=== PATIENT | female | born 1940 | race Caucasian/White ===

== ENCOUNTER 2018-01-25 05:28 | Observation (INO) | payer OTHER ==
[2018-01-25] MEDS ORDERED: GABAPENTIN 300 MG CAP PO ONE (05:50)
[2018-01-25] MEDS ORDERED: ceFAZolin 2 GM/DEXTROSE 100 ML IV ONE (05:50)
[2018-01-25] MEDS ORDERED: ACETAMINOPHEN 500 MG TAB PO ONE (05:50)
[2018-01-25] MEDS ORDERED: LR 1,000 ML IV ONE (05:51)
--- NOTE | 2018-01-25 06:37 | PDHPUP ---
History & Physical Update H&P update statement: This history and physical update is based on an assessment of the patient which was completed after admission or registration (within 24 hours), but prior to the surgery/procedure. H&P update: H&P reviewed & patient examined, no change in patient's condition since H&P completed
[2018-01-25] MEDS ORDERED: DEPO METHYLPREDNISOLONE 40 MG/ML SDV ONE (06:46)
[2018-01-25] MEDS ORDERED: BUPIVACAINE 0.25% 30 ML SDV ONE (06:46)
[2018-01-25] MEDS ORDERED: CHLORHEXIDINE GLUC HIBICLENS 118 ML BTL TP ONE (06:46)
[2018-01-25] MEDS ORDERED: THROMBIN (BOVINE) 5,000 UNIT VIAL TP ONE (06:46)
[2018-01-25] MEDS ORDERED: BACITRACIN 50,000 UNITS/10 ML SYR IRR ONE (06:47)
[2018-01-25] MEDS ORDERED: EPINEPHrine 1 MG/ML INJ ONE (06:47)
[2018-01-25] MEDS ORDERED: PROPOFOL 200 MG/20 ML VIAL ONE (07:11)
[2018-01-25] MEDS ORDERED: fentaNYL 250 MCG/5 ML INJ ONE (07:11)
[2018-01-25] MEDS ORDERED: PROPOFOL/EMULSION 500 MG/50 ML BOTTLE IV ONE ×2 (07:11→08:52)
--- NOTE | 2018-01-25 07:13 | PDANEPAE ---
ANE Past Medical History - Cardiovascular History Hx Hypertension: No Hx Arrhythmias: No Hx Chest Pain: No Hx Coronary Artery / Peripheral Vascular Disease: No Hx CHF / Valvular Disease: No Hx Palpitations: No Cardiovascular History Comment: OCC PAC'S,PVC'S - Pulmonary History Hx COPD: No Hx Asthma/Reactive Airway Disease: No Hx Recent Upper Respiratory Infection: No Hx Oxygen in Use at Home: No Hx Sleep Apnea: No Sleep Apnea Screening Result - Last Documented: Negative - Neurologic History Hx Cerebrovascular Accident: No Hx Seizures: No Hx Dementia: No Neurologic History Comment: ESSENTIAL TREMOR - Endocrine History Hx Diabetes: No Endocrine History Comment: HYPOTHYROID - Renal History Hx Renal Disorders: No - Liver History Hx Hepatic Disorders: No - Neurological & Psychiatric Hx Hx Neurological and Psychiatric Disorders: Yes Neurological / Psychiatric History Comment: SITUATIONAL ANXIETY - Cancer History Hx Cancer: Yes Cancer History Comment: SKIN - Congenital Disorder History Hx Congenital Disorders: No - GI History Hx Gastrointestinal Disorders: No - Other Health History Other Health History: OSTEOARTHRITIS. INTERMITTENT SWELLING IN FINGERS WILL TAKE A DIURETIC MOSTLY IN SUMMER MONTHS - Chronic Pain History Chronic Pain: Yes (LT HIP AND NUMBNESS LT PACE) - Surgical History Prior Surgeries: JORGE A TRIGGER FINGER RELEASES. JORGE A SHLDR SCOPES. HYSTERECTOMY. TONSILLECTOMY. PRAVEEN ANE Review of Systems Review of Systems: - Exercise capacity METS (RN): 4 METS ANE Patient History - Allergies Allergies/Adverse Reactions: No Known Allergies Allergy (Unverified 01/21/18 10:56) - Home Medications Home medications: home medication list seen and reviewed Home Medications: CeleBREX PRN 01/21/18 [Last Taken 01/11/18] Gabapentin PRN 01/21/18 [Last Taken 01/15/18] HCTZ (*) PRN 01/21/18 [Last Taken 01/18/18] Herbals/Supplements -Info Only DAILY 01/21/18 [Last Taken 01/11/18] Levothyroxine DAILY 01/21/18 [Last Taken 01/25/18] Propranolol HCl DAILY 01/21/18 [Last Taken 01/25/18] ZOLPIDEM TARTRATE HS 01/21/18 [Last Taken 01/24/18] Oxycodone-Acetaminophen 10-325 01/25/18 [Last Taken 01/21/18] - NPO status NPO Status: no food or drink >8 hours NPO Since - Liquids (Date): 01/25/18 NPO Since - Liquids (Time): 04:15 NPO Since - Solids (Date): 01/24/18 NPO Since - Solids (Time): 18:00 - Anes Hx Anes Hx: no prior problems - Smoking Hx Smoking Status: Never smoked ANE Labs/Vital Signs - Vital Signs Blood Pressure: 157/85 Heart Rate: 59 Respiratory Rate: 16 O2 Sat (%): 100 Height: 165.1 cm Weight: 61.235 kg ANE Physical Exam - Airway Neck exam: FROM Mallampati Score: Class 2 Mouth exam: normal dental/mouth exam - Pulmonary Pulmonary: no respiratory distress, no rales or rhonchi, clear to auscultation - Cardiovascular Cardiovascular: regular rate and rhythym, no murmur, rub, or gallop - ASA Status ASA Status: II ANE Anesthesia Plan Anesthesia Plan: general endotracheal anesthesia
[2018-01-25] MEDS ORDERED: ZOLPIDEM TARTRATE 5 MG TAB PO PRN (07:24)
[2018-01-25] MEDS ORDERED: oxyCODONE IR 5 MG TAB PO PRN ×2 (07:24→09:00)
[2018-01-25] MEDS ORDERED: IBUPROFEN 200 MG TAB PO PRN (07:24)
[2018-01-25] MEDS ORDERED: HYDROCHLOROTHIAZIDE 25 MG TAB PO PRN (07:24)
[2018-01-25] MEDS ORDERED: POLYETHYLENE GLYCOL 3350 17 GM PKT PO PRN (07:25)
[2018-01-25] MEDS ORDERED: ONDANSETRON DISINTEGRATING 4 MG TAB PO PRN (07:25)
[2018-01-25] MEDS ORDERED: MAGNESIUM HYDROXIDE 30 ML UDCUP PO PRN (07:25)
[2018-01-25] MEDS ORDERED: METHOCARBAMOL 750 MG TAB PO PRN (07:25)
[2018-01-25] MEDS ORDERED: BISACODYL 10 MG SUPP PR PRN (07:25)
[2018-01-25] MEDS ORDERED: ONDANSETRON 4 MG/2 ML VIAL IVP PRN ×2 (07:25→09:00)
[2018-01-25] MEDS ORDERED: LACTULOSE 20 GM/30 ML UDCUP PO PRN (07:25)
[2018-01-25] MEDS ORDERED: HYDROmorphONE/DILAUDID 1 MG/ML INJ IVP PRN (07:25)
[2018-01-25] MEDS ORDERED: diphenhydrAMINE 25 MG CAP PO PRN (07:25)
[2018-01-25] MEDS ORDERED: NS 1,000 ML IV SCH (07:30)
[2018-01-25] MEDS ORDERED: LIDOCAINE 2% 2 ML INJ ONE (07:44)
[2018-01-25] MEDS ORDERED: ROCURONIUM 50 MG/5 ML VIAL ONE (07:44)
[2018-01-25] MEDS ORDERED: DEXAMETHASONE 4 MG/ML VIAL ONE ×2 (07:45)
[2018-01-25] MEDS ORDERED: ACETAMINOPHEN 500 MG TAB PO PRN (09:00)
[2018-01-25] MEDS ORDERED: NALOXONE HCL 0.4 MG/ML INJ IVP PRN (09:00)
[2018-01-25] MEDS ORDERED: SENNOSIDES/DOCUSATE SODIUM TAB PO SCH (09:00)
[2018-01-25] MEDS ORDERED: LR 500 ML IV PRN (09:00)
[2018-01-25] MEDS ORDERED: FAMOTIDINE 20 MG TAB PO SCH (09:00)
[2018-01-25] MEDS ORDERED: PROPRANOLOL HCL 20 MG TAB PO SCH (09:00)
[2018-01-25] MEDS ORDERED: LABETALOL HCL 5 MG/ML 20 ML MDV IVP PRN (09:00)
[2018-01-25] MEDS ORDERED: DIAZEPAM 5 MG/ML 1 ML SYR IVP PRN (09:00)
[2018-01-25] MEDS ORDERED: PROMETHAZINE HCL 25 MG/ML INJ IVP PRN (09:00)
--- NOTE | 2018-01-25 09:50 | POSTANESTH ---
Post Anesthetic Evaluation Cardiovascular Status: Normal, Stable, Similar to Pre-Op Cond Respiratory Status: Normal, Stable, Similar to Pre-op Cond. Level of Consciousness/Mental Status: Can Participate in Eval, Moderately Sleepy Pain Control: Adequate, Prn Tx Ordered Nausea/Vomiting Control: Adequate, Prn Tx Ordered Complications Possibly Related to Anesthesia: None Noted
--- NOTE | 2018-01-25 10:05 | POSTOPPROG ---
Post Op Note Date of Operation: 01/25/18 Surgeon: Mark Davies Customer Support Agent: Miladis Anesthesiologist: Yin Anesthesia: GET(General Endotracheal), Local (Specify) Pre-op Diagnosis: HNP L4/5 Post-op Diagnosis: s/p DEB L4/5 Indication: stenosis, LLE pain Procedure: left L4/5 DEB Findings: none Inf/Abcess present in the surg proc area at time of surgery?: No Depth: Deep Incisional (Fascial) EBL: 50-100 Total fluids administered: see anesthesia record
[2018-01-25] MEDS ORDERED: fentaNYL 100 MCG/2 ML INJ ONE (10:06)
[2018-01-25] MEDS: fentaNYL 100 MCG/2 ML INJ IVP PRN ×2 (10:07→10:16)
--- NOTE | 2018-01-25 10:07 | SOAPPROG ---
SOAP Progress Note Assessment/Plan: Post Op Visit: S: Awake and alert. NAD. Pt with expected lower back pain O: AFVSS/PERRLA/EOMI no droop CN 2-12 grossly intact +lt touch 5/5 BUE/BLE = CDI A/P: 77 yo female that is s/p left sided DEB at L4/5 -orders in place -call with any questions or concerns -pt understands and agrees -pt seen by Dr Davies -admit obs for PT/OT 01/25/18 10:05 Objective: Vital Signs Temp Pulse Resp BP Pulse Ox 36.2 C 59 L 15 137/73 H 97 01/25/18 09:38 01/25/18 07:13 01/25/18 10:01 01/25/18 10:01 01/25/18 10:01 ICD10 Worksheet Patient Problems: Problems Problem Status Onset Lumbar radicular pain Acute Lumbar stenosis Acute - ICD10 Problem Qualifiers (1) Lumbar stenosis (2) Lumbar radicular pain
--- NOTE | 2018-01-25 13:03 | GOP ---
DATE OF OPERATION: 01/25/2018 SURGEON: Diane Davies MD LAST REMODELER REPAIRER: Malcolm Redding PA-C. PREOPERATIVE DIAGNOSIS: 1. Large herniated nucleus pulposus, L4-5, left side. 2. Severe left L4-5 radiculopathy. POSTOPERATIVE DIAGNOSIS: 1. Large herniated nucleus pulposus, L4-5, left side. 2. Severe left L4-5 radiculopathy. PROCEDURE PERFORMED: Left L4-5 hemilaminotomy with medial facetectomy and a left microdiskectomy (63 030, microscope) FINDINGS: ESTIMATED BLOOD LOSS: 50 cc. INDICATIONS: Ms. Caban is an elderly female, who presented with severe left leg pain and MRI demonst rated a large disk extrusion at L4-5 that had migrated rostrally all the way up to the L3-4 disc comp ressing the L4 and the L5 nerve root and I suggested surgery. She was in exquisite pain and she did want to proceed. The risk of CSF leak and recurrent disk herniation was discussed. She understood t hese risks and she did want surgery despite them. She also knew there was a chance surgery would chema l to eliminate her symptoms and she did want to proceed. DESCRIPTION OF PROCEDURE: The patient was taken to the operating room, placed in the supine position . General anesthesia was begun. She was flipped prone onto the Everette frame. Care was taken to pad all points of contact. Her back was sterilely prepped and draped in usual fashion. We made a local izing x-ray and then made a midline incision with a scalpel blade. It was 1.5 cm in length. The sub cutaneous tissue was dissected using Bovie cautery down to the fascia and a subperiosteal dissection was made on the left L4-5 lamina. Self-retaining retractors placed. We drilled a left L4 laminotomy and opened ligamentum flavum and under the microscope, decompressed the left lateral recess. We wer e slightly rostral to L4-5 disk because it was a rostral disk extrusion. We swept the thecal sac med ially and there was a large subannular and subligamentous fragment present. We incised the PLL and t he rostral annulus of the L4-5 disk. We squeezed a large amount of subligamentous material into our field of view and this was removed. We swept rostrally under the thecal sac, but above the posterior longitudinal ligament and delivered several very large free fragment disk herniation fragments from adjacent to the L4 pedicle underneath the L4 nerve and out in the L4 neural foramen. We had just a h uge amount of disk fragments come out in this fashion and this totally relaxed the thecal sac and the exiting L4 nerve. We were able to pass our ball-tip dissected all the way up to the L3-4 disk and w e removed fragments in this location. We then irrigated with antibiotic saline solution. We squeeze d some subannular fragments out from the L4-5 disk itself. We did not aggressively do a diskectomy. However, we did thoroughly irrigate the L4-5 disk as it was completely open by the original herniati on. We flushed disk fragments out of there and then placed a little Depo-Medrol down over the left L 4-L5 nerve root and then closed the incision in multiple layers using Vicryl sutures. A running PDS was placed in the skin itself. The patient was reversed from anesthesia, extubated, and transferred to recovery room in stable condition. COMPLICATIONS: None. /[id number]/MODL
[2018-01-25] MEDS ORDERED: ACETAMINOPHEN 500 MG TAB PO SCH (14:00)
[2018-01-25] MEDS ORDERED: GABAPENTIN 300 MG CAP PO SCH (14:00)
[2018-01-25 14:43] VITALS: BP 146/83
[2018-01-25] MEDS ORDERED: ceFAZolin 2 GM/DEXTROSE 100 ML IV SCH (15:30)
--- NOTE | 2018-01-25 16:03 | SOAPPROG ---
SOAP Progress Note Assessment/Plan: Doing well post op. Pt cleared from PT and is in minimal pain. Pt and want to dc home. 01/25/18 16:03 Objective: Vital Signs Temp Pulse Resp BP Pulse Ox 35.8 C L 63 15 146/83 H 97 01/25/18 14:42 01/25/18 14:42 01/25/18 14:42 01/25/18 14:42 01/25/18 14:42 01/24/18 01/25/18 01/26/18 05:59 05:59 05:59 Intake Total 1015 Output Total 250 Balance 765 ICD10 Worksheet Patient Problems: Problems Problem Status Onset Lumbar radicular pain Acute Lumbar stenosis Acute - ICD10 Problem Qualifiers (1) Lumbar stenosis (2) Lumbar radicular pain
[2018-01-26] MEDS ORDERED: LEVOTHYROXINE 50 MCG TAB PO SCH (06:00)
[2018-01-28] MEDS ORDERED: ENOXAPARIN 40 MG/0.4 ML SYR SC SCH (09:00)
== END 2018-01-25 16:50 | disposition home or self-care (01) ==
LOC: F3N 05:28
PROVIDERS: ADMIT Neurological Surgery; ATTEND Neurological Surgery
PROC: 00NY0ZZ Release Lumbar Spinal Cord, Open Approach (ICD-10-PCS; principal; 2018-01-25 07:15)
DX: M51.16 Intervertebral disc disorders with radiculopathy, lumbar region (principal); M21.372 Foot drop, left foot; E03.9 Hypothyroidism, unspecified
CPT/HCPCS: 63030; 76001; 97161; G0378; G8978; G8979; G8980; J0171; J0690; J1030; J1100; J2704; J3010